=== PATIENT | female | born 1960 | race Caucasian/White ===

== ENCOUNTER 2021-03-19 14:14 | Inpatient (IN) | payer BC, MEDICARE ==
[2021-03-19] MEDS ORDERED: metroNIDAZOLE-NS PMX 500 MG in SALINE 1 100ML.BAG IVPB STA (14:36)
[2021-03-19] MEDS ORDERED: MORPHINE SULFATE 4 MG/ML SYRINGE IV STA (14:36)
[2021-03-19 15:32] LABS: Basophils % (A) 0 %; Eosinophils % (A) 0 %; HGB 11.4 gm/dL (11.4-16.0); Lymphocytes # (A) 0.5 k/uL (1.0-4.8); Lymphocytes % (A) 12 %; MCH 32.1 pg (25.0-35.0); MCHC 33.4 g/dL (31.0-37.0); Mean Platelet Volume 9.6; Monocytes # (A) 0.2 k/uL (0-1.0); Monocytes % (A) 5 %; Neutrophils # (A) 3.5 k/uL (1.3-7.7); Neutrophils % (A) 82 %; Platelet Count 144 k/uL (150-450); RBC 3.54 m/uL (3.80-5.40); RDW 13.1 % (11.5-15.5); WBC 4.3 k/uL (3.8-10.6)
[2021-03-19 16:05] LABS: INR 1.1 (<1.2); Partial Thromboplastin Time 23.8 sec (22.0-30.0); Prothrombin Time 11.7 sec (9.0-12.0)
[2021-03-19] MEDS ORDERED: ONDANSETRON 4 MG/2 ML VIAL IVP PRN (16:16)
[2021-03-19] MEDS ORDERED: TEMAZEPAM 15 MG CAP PO PRN (16:16)
[2021-03-19] MEDS ORDERED: NALOXONE 0.4 MG/ML 1 ML VIAL IV PRN (16:16)
--- NOTE | 2021-03-19 16:16 | ED ---
Abdominal Pain HPI - General Chief Complaint: Abdominal Pain Stated Complaint: Diverticulitis Time Seen by Provider: 03/19/21 14:24 Source: patient, EMS Mode of arrival: EMS Limitations: no limitations - History of Present Illness Initial Comments: Patient presents with abdominal pain. She has pain all over the belly but mostly in the left lower quadrant. It doesn't radiate anywhere. Nothing makes it better or worse. She was seen at another hospital and was given pain medicine. She has no nausea or vomiting. She has no black or tarry stool or blood in the stool. Review of Systems ROS Statement: Those systems with pertinent positive or pertinent negative responses have been documented in the HPI. ROS Other: All systems not noted in ROS Statement are negative. 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 History of Any Multi-Drug Resistant Organisms: MRSA Date of last positivie culture/infection: 2010 Past Surgical History: Appendectomy Additional Past Surgical History / Comment(s): RIght knee surgery (acl repair) Past Psychological History: No Psychological Hx Reported Smoking Status: Current some day smoker Past Alcohol Use History: None Reported, Occasional Past Drug Use History: None Reported General Exam Limitations: no limitations General appearance: alert, in no apparent distress Head exam: Present: atraumatic, normocephalic, normal inspection Eye exam: Present: normal appearance, PERRL, EOMI. Absent: scleral icterus, conjunctival injection, periorbital swelling ENT exam: Present: normal exam, mucous membranes moist Neck exam: Present: normal inspection. Absent: tenderness, meningismus, lymphadenopathy Respiratory exam: Present: normal lung sounds bilaterally. Absent: respiratory distress, wheezes, rales, rhonchi, stridor Cardiovascular Exam: Present: regular rate, normal rhythm, normal heart sounds. Absent: systolic murmur, diastolic murmur, rubs, gallop, clicks GI/Abdominal exam: Present: soft, tenderness, normal bowel sounds. Absent: distended, guarding, rebound, rigid Extremities exam: Present: normal inspection, full ROM, normal capillary refill. Absent: tenderness, pedal edema, joint swelling, calf tenderness Back exam: Present: normal inspection Neurological exam: Present: alert, oriented X3, CN II-XII intact Psychiatric exam: Present: normal affect, normal mood Skin exam: Present: warm, dry, intact, normal color. Absent: rash Course Vital Signs 03/19/21 14:17 Temperature 99 F Pulse Rate 70 Respiratory 20 Rate Blood Pressure 141/81 O2 Sat by Pulse 97 Oximetry Medical Decision Making - Medical Decision Making Patient presents with abdominal pain. CT shows diverticulitis with abscess formation. I placed a consult to IR. Patient will be admitted to the hospital. - Lab Data Result diagrams: 03/19/21 15:22 Lab Results 03/19/21 03/19/21 Range/Units 15:22 15:22 WBC 4.3 (3.8-10.6) k/uL RBC 3.54 L (3.80-5.40) m/uL Hgb 11.4 (11.4-16.0) gm/dL Hct 34.0 (34.0-46.0) % MCV 96.0 (80.0-100.0) fL MCH 32.1 (25.0-35.0) pg MCHC 33.4 (31.0-37.0) g/dL RDW 13.1 (11.5-15.5) % Plt Count 144 L (150-450) k/uL MPV 9.6 Neutrophils % 82 % Lymphocytes % 12 % Monocytes % 5 % Eosinophils % 0 % Basophils % 0 % Neutrophils # 3.5 (1.3-7.7) k/uL Lymphocytes # 0.5 L (1.0-4.8) k/uL Monocytes # 0.2 (0-1.0) k/uL Eosinophils # 0.0 (0-0.7) k/uL Basophils # 0.0 (0-0.2) k/uL PT 11.7 (9.0-12.0) sec INR 1.1 (<1.2) APTT 23.8 (22.0-30.0) sec Disposition Clinical Impression: Diverticulitis Disposition: ADMITTED IP TO THIS HOSP Condition: Fair Is patient prescribed a controlled substance at d/c from ED?: No Referrals: Bipin Bernal MD [Primary Care Provider] - 1-2 days
[2021-03-19 17:02] LABS: Appearance,Urine Clear (Clear); Bacteria,Urine Rare /hpf; Bilirubin,Urine Negative (Negative); Blood,Urine Trace (Negative); Color,Urine Yellow; Glucose,Urine (UA) Negative (Negative); Ketones,Urine 4+ (Negative); Leukocyte Esterase,Urine Large (Negative); Mucus,Urine Rare /hpf; Nitrite,Urine Negative (Negative); Protein,Urine 1+ (Negative); RBC,Urine 27 /hpf (0-5); Squamous Epithelial Cell,Urine 4 /hpf (0-4); Urobilinogen,Urine <2.0 mg/dL (<2.0); WBC,Urine 17 /hpf (0-5)
[2021-03-19 17:04] LABS: Specific Gravity,Urine >1.050 (1.001-1.035)
[2021-03-19 17:21] LABS: ALT 10 U/L (4-34); AST 15 U/L (14-36); African American GFR (CKD) >90 (>60 ml/min/1.73 sqM); Albumin 3.7 g/dL (3.5-5.0); Alkaline Phosphatase 105 U/L (38-126); Amylase 44 U/L (30-110); Anion Gap 11 mmol/L; Blood Urea Nitrogen 11 mg/dL (7-17); Calcium 8.8 mg/dL (8.4-10.2); Carbon Dioxide 20 mmol/L (22-30); Chloride 106 mmol/L (98-107); Glucose 91 mg/dL (74-99); Non-African American GFR(CKD) >90 (>60 ml/min/1.73 sqM); Potassium 4.3 mmol/L (3.5-5.1); Sodium 137 mmol/L (137-145); Total Bilirubin 0.5 mg/dL (0.2-1.3); Total Protein 5.8 g/dL (6.3-8.2)
[2021-03-19 17:30] LABS: Lipase 102 U/L (23-300)
[2021-03-19] MEDS: MORPHINE SULFATE 4 MG/ML SYRINGE IV PRN (21:10)
[2021-03-19] MEDS: SODIUM CHLORIDE 0.9% 1,000 ML IV SCH (21:10)
[2021-03-19] MEDS ORDERED: LORazepam 0.5 MG TAB PO PRN (21:17)
[2021-03-19] MEDS ORDERED: ACYCLOVIR 800 MG TAB PO SCH (21:30)
[2021-03-19] MEDS ORDERED: PIPERACILLIN-TAZOBACTAM 3.375 GM in SODIUM CHLORIDE 0.9% 100 ML IVPB ONE (21:45)
[2021-03-19] MEDS: ACYCLOVIR 200 MG CAP PO SCH (22:05)
[2021-03-19] MEDS: NON FORMULARY DRUG (Venetoclax [Venclexta] 100 MG Tablet) PO SCH (22:07)
--- NOTE | 2021-03-19 22:29 | P.HPIM ---
History of Present Illness H&P Date: 03/19/21 Chief Complaint: Acute Diverticulitis transferred from [facility] Ms. Matson is a 60-year-old female with a past medical history of CLL in remission on Venclexta transferred from [facility] for concerns of intra- abdominal abscess. Patient states for the past 1 week she has been having abdominal discomfort and for the past 3 to 4 days have been having fevers. She states that she has been taking Tylenol and Motrin without much improvement in her symptoms. Patient also states that she had an episode of nausea and vomiting prior to going to the hospital. At another facility patient had a CAT scan of the abdomen and pelvis showing acute diverticulitis with developing abscess,one [id number] mm and second fluid collection within the sigmoid wall-29mm. She was evaluated by the surgeon at the facility and they suggested that she may need IR guided drainage of the abscess, for which she is transferred for to [facility] [place]. Patient received a dose of Zosyn and also be obtained blood cultures. Patient's reports from another facility reviewed. Patient's vitals at the time of admission to the ER temperature 99, heart rate 70, respiratory rate 20, blood pressure 141/81 saturating at 97% on room air. She had labs done showing white count of 4.3, hemoglobin 11.4, platelets 144. Sodium 137, potassium 4.3, chloride 106, bicarb 20, BUN 11, creatinine 0.56. Urine analysis is positive for large leukocyte esterase 27 RBCs 17 WBCs and trace blood with 4+ ketones. Coronavirus PCR negative. Review of Systems REVIEW OF SYSTEMS: CONSTITUTIONAL: As mentioned in HPI HEENT: No recent visual problems or hearing problems. Denied any sore throat. CARDIOVASCULAR: No chest pain, orthopnea, PND, no palpitations, no syncope. PULMONARY: No shortness of breath, no cough, no hemoptysis. GASTROINTESTINAL: As mentioned in HPI NEUROLOGICAL: No headaches, no weakness, no numbness. HEMATOLOGICAL: Denies any bleeding or petechiae. GENITOURINARY: Denies any burning micturition, frequency, or urgency. MUSCULOSKELETAL/RHEUMATOLOGICAL: Denies any joint pain, swelling, or any muscle pain. ENDOCRINE: Denies any polyuria or polydipsia. The rest of the 14-point review of systems is negative. 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 History of Any Multi-Drug Resistant Organisms: MRSA Date of last positivie culture/infection: 2010 Past Surgical History: Appendectomy Additional Past Surgical History / Comment(s): RIght knee surgery (acl repair) Past Psychological History: No Psychological Hx Reported Smoking Status: Current some day smoker Past Alcohol Use History: None Reported, Occasional Past Drug Use History: None Reported Medications and Allergies Home Medications Medication Instructions Recorded Confirmed Type Acyclovir 800 mg PO HS 03/19/21 03/19/21 History Albuterol Inhaler [Ventolin Hfa 2 puff INHALATION RT-Q6H PRN 03/19/21 03/19/21 History Inhaler] Cholecalciferol (Vitamin D3) 125 mcg PO HS 03/19/21 03/19/21 History [Vitamin D3 (125 MCG = 5,000 IU)] LORazepam [Ativan] 0.5 mg PO HS PRN 03/19/21 03/19/21 History Venetoclax [Venclexta] 400 mg PO HS 03/19/21 03/19/21 History Zinc Gluconate [Zinc] 50 mg PO HS 03/19/21 03/19/21 History Allergies Allergy/AdvReac Type Severity Reaction Status Date / Time oseltamivir [From Tamiflu] Allergy Rash/Hives Verified 03/19/21 16:23 amoxicillin [From Augmentin] AdvReac Unknown Vomiting Verified 03/19/21 16:23 clavulanic acid AdvReac Unknown Vomiting Verified 03/19/21 16:23 [From Augmentin] vancomycin AdvReac "Flushing/Red Verified 03/19/21 16:24 Man Syndrome" Physical Exam Vitals: Vital Signs Temp Pulse Resp BP Pulse Ox 03/19/21 14:17 99 F 70 20 141/81 97 Intake and Output 03/19/21 03/19/21 03/19/21 06:59 14:59 22:59 Other: Weight 101.605 kg PHYSICAL EXAMINATION: GENERAL: The patient is alert and oriented x3, not in any acute distress. Well developed, well nourished. HEENT: Pupils are round and equally reacting to light. EOMI. No scleral icterus. No conjunctival pallor. Normocephalic, atraumatic. No pharyngeal erythema. No thyromegaly. CARDIOVASCULAR: S1 and S2 present. No murmurs, rubs, or gallops. PULMONARY: Chest is clear to auscultation, no wheezing or crackles. ABDOMEN: Soft, mild tenderness in all quadrants , nondistended, normoactive bowel sounds. No palpable organomegaly. MUSCULOSKELETAL: No joint swelling or deformity. EXTREMITIES: No cyanosis, clubbing, or pedal edema. Hyperpigmented lesion on both LEs. NEUROLOGICAL: Gross neurological examination did not reveal any focal deficits. SKIN: No rashes. Results CBC & Chem 7: 03/19/21 15:22 03/19/21 17:05 Labs: Abnormal Lab Results - Last 24 Hours (Table) 03/19/21 Range/Units 15:22 RBC 3.54 L (3.80-5.40) m/uL Plt Count 144 L (150-450) k/uL Lymphocytes # 0.5 L (1.0-4.8) k/uL Assessment and Plan Assessment: ASSESSMENT Sepsis secondary to acute diverticulitis Acute diverticulitis with abscess Thrombocytopenia History of CLL on Venetoclax History of anxiety History of MRSA Plan: Patient to be continued on Zosyn. Surgery/ IR consulted for possible drainage of the abscess. Patient is kept n.p.o. except for her medications. Continue with IV fluids at 100 cc/h. Continue with the rest of her current medication regimen. Further recommendations to follow depending on the progress of the patient. The treatment plan was discussed in detail with the patient and her at bedside.
[2021-03-19] MEDS ORDERED: HYDROmorphone 0.5 MG/0.5 ML SYRINGE IVP PRN (23:46)
[2021-03-20] MEDS ORDERED: PIPERACILLIN-TAZOBACTAM 3.375 GM in SODIUM CHLORIDE 0.9% 100 ML IVPB SCH ×2
[2021-03-20] MEDS: PIPERACILLIN-TAZOBACTAM 3.375 GM in SODIUM CHLORIDE 0.9% 100 ML IVPB SCH ×3 (05:47→22:25)
[2021-03-20] MEDS: HYDROcodone/APAP 5-325MG 1 EACH TAB PO PRN (05:47)
[2021-03-20 05:49] LABS: Basophils % (A) 0 %; Eosinophils % (A) 0 %; HGB 10.7 gm/dL (11.4-16.0); Lymphocytes # (A) 0.6 k/uL (1.0-4.8); Lymphocytes % (A) 15 %; MCH 32.4 pg (25.0-35.0); MCHC 33.5 g/dL (31.0-37.0); MCV 96.8 fL (80.0-100.0); Mean Platelet Volume 7.5; Monocytes # (A) 0.3 k/uL (0-1.0); Monocytes % (A) 6 %; Neutrophils # (A) 3.3 k/uL (1.3-7.7); Neutrophils % (A) 77 %; Platelet Count 133 k/uL (150-450); RBC 3.31 m/uL (3.80-5.40); RDW 12.9 % (11.5-15.5); WBC 4.3 k/uL (3.8-10.6)
[2021-03-20 06:00] LABS: African American GFR (CKD) >90 (>60 ml/min/1.73 sqM); Anion Gap 10 mmol/L; Blood Urea Nitrogen 9 mg/dL (7-17); Calcium 8.3 mg/dL (8.4-10.2); Carbon Dioxide 18 mmol/L (22-30); Chloride 106 mmol/L (98-107); Glucose 84 mg/dL (74-99); Non-African American GFR(CKD) >90 (>60 ml/min/1.73 sqM); Potassium 4.1 mmol/L (3.5-5.1); Sodium 134 mmol/L (137-145)
[2021-03-20] MEDS: HEPARIN SODIUM,PORCINE/PF 5,000 UNIT/0.5 ML SYRINGE SQ SCH ×2 (08:13→22:02)
[2021-03-20 13:42] VITALS: BMI 31.4
[2021-03-20] MEDS ORDERED: LORazepam 2 MG/ML INJ IV PRN (14:19)
--- NOTE | 2021-03-20 14:19 | P.GSCN ---
History of Present Illness Consult date: 03/20/21 Reason for Consult: Diverticulitis with abscess History of present illness: The patient is a 60-year-old female who developed abdominal pain starting about a week ago. She never had any episodes like this in the past. She began having some fevers and took Tylenol or Motrin without improvement. The pain got worse and she developed nausea and vomiting so she went to the ER. A computed tomography scan showed acute diverticulitis with an abscess. It was recommended she be transferred here for percutaneous drainage by the interventional radiologist. Patient has never had diverticulitis in the past. Denies any prior issues with blood in the stool or dark tarry stool. No family history of GI malignancy or inflammatory bowel disease. The patient has never had a colonoscopy before. 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 History of Any Multi-Drug Resistant Organisms: MRSA Year Discovered:: 2010 MDRO Source:: Blood Past Surgical History: Appendectomy Additional Past Surgical History / Comment(s): RIght knee surgery (acl repair) Past Psychological History: No Psychological Hx Reported Smoking Status: Current some day smoker Past Alcohol Use History: None Reported, Occasional Past Drug Use History: None Reported Medications and Allergies Home Medications Medication Instructions Recorded Confirmed Type Acyclovir 800 mg PO HS 03/19/21 03/19/21 History Albuterol Inhaler [Ventolin Hfa 2 puff INHALATION RT-Q6H PRN 03/19/21 03/19/21 History Inhaler] Cholecalciferol (Vitamin D3) 125 mcg PO HS 03/19/21 03/19/21 History [Vitamin D3 (125 MCG = 5,000 IU)] LORazepam [Ativan] 0.5 mg PO HS PRN 03/19/21 03/19/21 History Venetoclax [Venclexta] 400 mg PO HS 03/19/21 03/19/21 History Zinc Gluconate [Zinc] 50 mg PO HS 03/19/21 03/19/21 History Allergies Allergy/AdvReac Type Severity Reaction Status Date / Time oseltamivir [From Tamiflu] Allergy Rash/Hives Verified 03/19/21 23:31 amoxicillin [From Augmentin] AdvReac Unknown Vomiting Verified 03/19/21 23:31 clavulanic acid AdvReac Unknown Vomiting Verified 03/19/21 23:31 [From Augmentin] vancomycin AdvReac "Flushing/Red Verified 03/19/21 23:31 Man Syndrome" Surgical - Exam Osteopathic Statement: *. No significant issues noted on an osteopathic structural exam other than those noted in the History and Physical/Consult. Vital Signs Temp Pulse Resp BP Pulse Ox 99 F 70 20 141/81 97 03/19/21 14:17 03/19/21 14:17 03/19/21 14:17 03/19/21 14:17 03/19/21 14:17 - General The patient is anxious well developed, well nourished - Eyes normal ocular movement - Neck trachea midline - Respiratory normal respiratory effort, clear to auscultation (But diminished bilaterally) - Abdomen Abdomen: soft, tender (Nonspecific tenderness in the lower abdomen), bowel sounds, no guarding, no rigid, no rebound Results - Labs 03/20/21 05:37 03/20/21 05:37 Abnormal Lab Results - Last 24 Hours (Table) 03/19/21 03/19/21 03/19/21 Range/Units 15:22 15:22 17:05 RBC 3.54 L (3.80-5.40) m/uL Hgb (11.4-16.0) gm/dL Hct (34.0-46.0) % Plt Count 144 L (150-450) k/uL Lymphocytes # 0.5 L (1.0-4.8) k/uL Sodium (137-145) mmol/L Carbon Dioxide 20 L (22-30) mmol/L Calcium (8.4-10.2) mg/dL Total Protein 5.8 L (6.3-8.2) g/dL Ur Specific [place] >1.050 H (1.001-1.035) Urine Protein 1+ H (Negative) Urine Ketones 4+ H (Negative) Urine Blood Trace H (Negative) Ur Leukocyte Esterase Large H (Negative) Urine RBC 27 H (0-5) /hpf Urine WBC 17 H (0-5) /hpf Urine Bacteria Rare H (None) /hpf Urine Mucus Rare H (None) /hpf 03/20/21 03/20/21 Range/Units 05:37 05:37 RBC 3.31 L (3.80-5.40) m/uL Hgb 10.7 L (11.4-16.0) gm/dL Hct 32.0 L (34.0-46.0) % Plt Count 133 L (150-450) k/uL Lymphocytes # 0.6 L (1.0-4.8) k/uL Sodium 134 L (137-145) mmol/L Carbon Dioxide 18 L (22-30) mmol/L Calcium 8.3 L (8.4-10.2) mg/dL Total Protein (6.3-8.2) g/dL Ur Specific [place] (1.001-1.035) Urine Protein (Negative) Urine Ketones (Negative) Urine Blood (Negative) Ur Leukocyte Esterase (Negative) Urine RBC (0-5) /hpf Urine WBC (0-5) /hpf Urine Bacteria (None) /hpf Urine Mucus (None) /hpf Microbiology - Last 24 Hours (Table) 03/19/21 15:22 Urine Culture - Preliminary Urine,Clean Catch Diabetes panel 03/19/21 03/20/21 Range/Units 17:05 05:37 Sodium 137 134 L (137-145) mmol/L Potassium 4.3 4.1 (3.5-5.1) mmol/L Chloride 106 106 (98-107) mmol/L Carbon Dioxide 20 L 18 L (22-30) mmol/L BUN 11 9 (7-17) mg/dL Creatinine 0.56 0.54 (0.52-1.04) mg/dL Glucose 91 84 (74-99) mg/dL Calcium 8.8 8.3 L (8.4-10.2) mg/dL AST 15 (14-36) U/L ALT 10 (4-34) U/L Alkaline Phosphatase 105 (38-126) U/L Total Protein 5.8 L (6.3-8.2) g/dL Albumin 3.7 (3.5-5.0) g/dL Calcium panel 03/19/21 03/20/21 Range/Units 17:05 05:37 Calcium 8.8 8.3 L (8.4-10.2) mg/dL Albumin 3.7 (3.5-5.0) g/dL Pituitary panel 03/19/21 03/20/21 Range/Units 17:05 05:37 Sodium 137 134 L (137-145) mmol/L Potassium 4.3 4.1 (3.5-5.1) mmol/L Chloride 106 106 (98-107) mmol/L Carbon Dioxide 20 L 18 L (22-30) mmol/L BUN 11 9 (7-17) mg/dL Creatinine 0.56 0.54 (0.52-1.04) mg/dL Glucose 91 84 (74-99) mg/dL Calcium 8.8 8.3 L (8.4-10.2) mg/dL Adrenal panel 03/19/21 03/20/21 Range/Units 17:05 05:37 Sodium 137 134 L (137-145) mmol/L Potassium 4.3 4.1 (3.5-5.1) mmol/L Chloride 106 106 (98-107) mmol/L Carbon Dioxide 20 L 18 L (22-30) mmol/L BUN 11 9 (7-17) mg/dL Creatinine 0.56 0.54 (0.52-1.04) mg/dL Glucose 91 84 (74-99) mg/dL Calcium 8.8 8.3 L (8.4-10.2) mg/dL Total Bilirubin 0.5 (0.2-1.3) mg/dL AST 15 (14-36) U/L ALT 10 (4-34) U/L Alkaline Phosphatase 105 (38-126) U/L Total Protein 5.8 L (6.3-8.2) g/dL Albumin 3.7 (3.5-5.0) g/dL - Imaging CT scan - abdomen: report reviewed Assessment and Plan (1) CLL (chronic lymphocytic leukemia) Current Visit: Yes Status: Acute Code(s): C91.10 - CHRONIC LYMPHOCYTIC LEUK OF B-CELL TYPE NOT ACHIEVE REMIS SNOMED Code(s): 27720664 (2) Anxiety Current Visit: Yes Status: Acute Code(s): F41.9 - ANXIETY DISORDER, UN SPECIFIED SNOMED Code(s): 74388726 (3) Tobacco dependence Current Visit: Yes Status: Acute Code(s): F17.200 - NICOTINE DEPENDENCE, UNSPECIFIED, UNCOMPLICATED SNOMED Code(s): 29287363 (4) Diverticulitis of intestine with abscess Current Visit: Yes Status: Acute Code(s): K57.80 - DVTRCLI OF INTEST, PART UNSP, W PERF AND ABSCESS W/O BLEED SNOMED Code(s): 403466152 Plan: Patient is on appropriate antibiotic therapy. DVT and ulcer prophylaxis. Await evaluation and treatment by interventional radiology. Currently nonsurgical unless abscess is not amenable to IR drainage or she doesn't respond to medical therapy. Questions were encouraged and answered.
[2021-03-20] MEDS ORDERED: PANTOPRAZOLE 40 MG TABLET PO STA (14:20)
--- NOTE | 2021-03-20 14:50 | P.GSCN ---
History of Present Illness Consult date: 03/20/21 Reason for Consult: pelvic abscess History of present illness: I was asked to review patient's ct from outside institution dated 03/19/21. The multilocular probable diverticular abscess has intramural component, a portion within the pelvis that does not show percutaneous accessibility, measuring 4.5x 3x 2 cm. IR defers percutaneous biopsy for these reasons. 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 History of Any Multi-Drug Resistant Organisms: MRSA Year Discovered:: 2010 MDRO Source:: Blood Past Surgical History: Appendectomy Additional Past Surgical History / Comment(s): RIght knee surgery (acl repair) Past Psychological History: No Psychological Hx Reported Smoking Status: Current some day smoker Past Alcohol Use History: None Reported, Occasional Past Drug Use History: None Reported Medications and Allergies Home Medications Medication Instructions Recorded Confirmed Type Acyclovir 800 mg PO HS 03/19/21 03/19/21 History Albuterol Inhaler [Ventolin Hfa 2 puff INHALATION RT-Q6H PRN 03/19/21 03/19/21 History Inhaler] Cholecalciferol (Vitamin D3) 125 mcg PO HS 03/19/21 03/19/21 History [Vitamin D3 (125 MCG = 5,000 IU)] LORazepam [Ativan] 0.5 mg PO HS PRN 03/19/21 03/19/21 History Venetoclax [Venclexta] 400 mg PO HS 03/19/21 03/19/21 History Zinc Gluconate [Zinc] 50 mg PO HS 03/19/21 03/19/21 History Allergies Allergy/AdvReac Type Severity Reaction Status Date / Time oseltamivir [From Tamiflu] Allergy Rash/Hives Verified 03/19/21 23:31 amoxicillin [From Augmentin] AdvReac Unknown Vomiting Verified 03/19/21 23:31 clavulanic acid AdvReac Unknown Vomiting Verified 03/19/21 23:31 [From Augmentin] vancomycin AdvReac "Flushing/Red Verified 03/19/21 23:31 Man Syndrome" Surgical - Exam Vital Signs Temp Pulse Resp BP Pulse Ox 99 F 70 20 141/81 97 03/19/21 14:17 03/19/21 14:17 03/19/21 14:17 03/19/21 14:17 03/19/21 14:17 Results - Labs 03/20/21 05:37 03/20/21 05:37 Abnormal Lab Results - Last 24 Hours (Table) 03/19/21 03/19/21 03/19/21 Range/Units 15:22 15:22 17:05 RBC 3.54 L (3.80-5.40) m/uL Hgb (11.4-16.0) gm/dL Hct (34.0-46.0) % Plt Count 144 L (150-450) k/uL Lymphocytes # 0.5 L (1.0-4.8) k/uL Sodium (137-145) mmol/L Carbon Dioxide 20 L (22-30) mmol/L Calcium (8.4-10.2) mg/dL Total Protein 5.8 L (6.3-8.2) g/dL Ur Specific [place] >1.050 H (1.001-1.035) Urine Protein 1+ H (Negative) Urine Ketones 4+ H (Negative) Urine Blood Trace H (Negative) Ur Leukocyte Esterase Large H (Negative) Urine RBC 27 H (0-5) /hpf Urine WBC 17 H (0-5) /hpf Urine Bacteria Rare H (None) /hpf Urine Mucus Rare H (None) /hpf 03/20/21 03/20/21 Range/Units 05:37 05:37 RBC 3.31 L (3.80-5.40) m/uL Hgb 10.7 L (11.4-16.0) gm/dL Hct 32.0 L (34.0-46.0) % Plt Count 133 L (150-450) k/uL Lymphocytes # 0.6 L (1.0-4.8) k/uL Sodium 134 L (137-145) mmol/L Carbon Dioxide 18 L (22-30) mmol/L Calcium 8.3 L (8.4-10.2) mg/dL Total Protein (6.3-8.2) g/dL Ur Specific [place] (1.001-1.035) Urine Protein (Negative) Urine Ketones (Negative) Urine Blood (Negative) Ur Leukocyte Esterase (Negative) Urine RBC (0-5) /hpf Urine WBC (0-5) /hpf Urine Bacteria (None) /hpf Urine Mucus (None) /hpf Microbiology - Last 24 Hours (Table) 03/19/21 15:22 Urine Culture - Preliminary Urine,Clean Catch Diabetes panel 03/19/21 03/20/21 Range/Units 17:05 05:37 Sodium 137 134 L (137-145) mmol/L Potassium 4.3 4.1 (3.5-5.1) mmol/L Chloride 106 106 (98-107) mmol/L Carbon Dioxide 20 L 18 L (22-30) mmol/L BUN 11 9 (7-17) mg/dL Creatinine 0.56 0.54 (0.52-1.04) mg/dL Glucose 91 84 (74-99) mg/dL Calcium 8.8 8.3 L (8.4-10.2) mg/dL AST 15 (14-36) U/L ALT 10 (4-34) U/L Alkaline Phosphatase 105 (38-126) U/L Total Protein 5.8 L (6.3-8.2) g/dL Albumin 3.7 (3.5-5.0) g/dL Calcium panel 03/19/21 03/20/21 Range/Units 17:05 05:37 Calcium 8.8 8.3 L (8.4-10.2) mg/dL Albumin 3.7 (3.5-5.0) g/dL Pituitary panel 03/19/21 03/20/21 Range/Units 17:05 05:37 Sodium 137 134 L (137-145) mmol/L Potassium 4.3 4.1 (3.5-5.1) mmol/L Chloride 106 106 (98-107) mmol/L Carbon Dioxide 20 L 18 L (22-30) mmol/L BUN 11 9 (7-17) mg/dL Creatinine 0.56 0.54 (0.52-1.04) mg/dL Glucose 91 84 (74-99) mg/dL Calcium 8.8 8.3 L (8.4-10.2) mg/dL Adrenal panel 03/19/21 03/20/21 Range/Units 17:05 05:37 Sodium 137 134 L (137-145) mmol/L Potassium 4.3 4.1 (3.5-5.1) mmol/L Chloride 106 106 (98-107) mmol/L Carbon Dioxide 20 L 18 L (22-30) mmol/L BUN 11 9 (7-17) mg/dL Creatinine 0.56 0.54 (0.52-1.04) mg/dL Glucose 91 84 (74-99) mg/dL Calcium 8.8 8.3 L (8.4-10.2) mg/dL Total Bilirubin 0.5 (0.2-1.3) mg/dL AST 15 (14-36) U/L ALT 10 (4-34) U/L Alkaline Phosphatase 105 (38-126) U/L Total Protein 5.8 L (6.3-8.2) g/dL Albumin 3.7 (3.5-5.0) g/dL
--- NOTE | 2021-03-20 15:06 | P.PN ---
Progress Note - Text Progress Note Date: 03/20/21 The interventional radiologist reviewed the patient's CT scan and found the abscess not to be amenable to percutaneous drainage. THerefore I recommended exploratory laparotomy with hartmans procedure. THe procedure, risks, complications and usual postoperative course was discussed with the patient. Questions were encouraged and answered. I will take her to the OR this afternoon
[2021-03-20] MEDS ORDERED: ACETAMINOPHEN IV (For NPO) 1,000 MG in EMPTY BAG 1 BAG IVPB ONE (15:34)
[2021-03-20] MEDS ORDERED: IV FLUID CONTINUATION 1,000 ML IV ONE ×2 (16:03)
[2021-03-20] MEDS ORDERED: ONDANSETRON 4 MG/2 ML VIAL IVP ONE (16:06)
[2021-03-20] MEDS ORDERED: DEXAMETHASONE SOD PHOSPHATE 4 MG/ML 1 ML VIAL IVP ONE (16:07)
[2021-03-20] MEDS ORDERED: SUCCINYLCHOLINE CHLORIDE 100 MG/5 ML SYR IV ONE (16:14)
[2021-03-20] MEDS ORDERED: fentaNYL (PF) 50 MCG/ML 2 ML AMP ONE (16:14)
[2021-03-20] MEDS ORDERED: ROCURONIUM 10 MG/ML (5 ML VIAL) IV ONE (16:14)
[2021-03-20] MEDS ORDERED: PROPOFOL 10 MG/ML 20 ML VIAL IV ONE (16:14)
[2021-03-20] MEDS ORDERED: ACETAMINOPHEN IV (For NPO) 1,000 MG/100 ML VIAL ONE (16:14)
[2021-03-20] MEDS ORDERED: LIDOCAINE 1% INJ 10MG/ML (20 ML MDV) ONE (16:14)
[2021-03-20] MEDS ORDERED: NEOSTIGMINE 1 MG/ML 10 ML VIAL ONE (16:14)
[2021-03-20] MEDS ORDERED: GLYCOPYRROLATE 0.2 MG/ML 2 ML VIAL ONE (16:14)
[2021-03-20] MEDS ORDERED: MIDAZOLAM 2 MG/2 ML VIAL ONE (16:14)
[2021-03-20] MEDS ORDERED: HYDROmorphone (PF) 1 MG/ML ONE (16:14)
[2021-03-20] MEDS ORDERED: LACTATED RINGERS 1,000 ML IV ONE (16:48)
--- NOTE | 2021-03-20 17:06 | P.PN ---
Subjective Progress Note Date: 03/20/21 Principal diagnosis: Acute Diverticulitis with Abscess Ms. Matson is a 60-year-old female with a past medical history of CLL in remission on Venclexta transferred from [facility] for concerns of intra- abdominal abscess. Patient states for the past 1 week she has been having abdominal discomfort and for the past 3 to 4 days have been having fevers. She states that she has been taking Tylenol and Motrin without much improvement in her symptoms. Patient also states that she had an episode of nausea and vomiting prior to going to the hospital. At another facility patient had a CAT scan of the abdomen and pelvis showing acute diverticulitis with developing abscess,one [id number] mm and second fluid collection within the sigmoid wall-29mm. She was evaluated by the surgeon at the facility and they suggested that she may need IR guided drainage of the abscess, for which she is transferred for to [facility] [place]. Patient received a dose of Zosyn and also be obtained blood cultures. Patient's reports from another facility reviewed. Patient's vitals at the time of admission to the ER temperature 99, heart rate 70, respiratory rate 20, blood pressure 141/81 saturating at 97% on room air. She had labs done showing white count of 4.3, hemoglobin 11.4, platelets 144. Sodium 137, potassium 4.3, chloride 106, bicarb 20, BUN 11, creatinine 0.56. Urine analysis is positive for large leukocyte esterase 27 RBCs 17 WBCs and trace blood with 4+ ketones. Coronavirus PCR negative. On 03/20/2021- patient is seen and examined at the bedside. Patient states her abdominal pain has improved. She denies having any nausea or vomiting currently . Patient denies having any fevers chills or rigors. Patient is tearful that she might have to undergo surgical exploration for drainage of the abscess as told by Dr. German earlier this afternoon. On reviewing the vitals patient spiked a fever of 100, tachycardic at 112, blood pressure 155/80, respiratory rate 18, saturating at 95% on room air. Her last from this morning showing white count of 4.3, hemoglobin 10.7, platelets 133. Sodium 134, potassium 4.1, chloride 106, bicarb 18, BUN 9, creatinine 0.54. Active Medications Hydrocodone Bitart/Acetaminophen (Hydrocodone/Apap 5-325mg 1 Each Tab) 1 each PO Q6HR PRN PRN Reason: Pain Last Admin: 03/20/21 05:47 Dose: 1 each Documented by: Acyclovir (Acyclovir 200 Mg Cap) 800 mg PO HS [facility] Last Admin: 03/19/21 22:05 Dose: 800 mg Documented by: Heparin Sodium (Porcine) (Heparin Sodium,Porcine/Pf 5,000 Unit/0.5 Ml Syringe) 5,000 unit SQ BID [facility] Last Admin: 03/20/21 08:13 Dose: 5,000 unit Documented by: Hydromorphone HCl (Hydromorphone 0.5 Mg/0.5 Ml Syringe) 0.5 mg IVP Q6HR PRN PRN Reason: Pain Piperacillin Sod/Tazobactam (Sod 3.375 gm/ Sodium Chloride) 100 mls @ 25 mls/hr IVPB Q8H [facility] Last Admin: 03/20/21 14:11 Dose: 25 mls/hr Documented by: Sodium Chloride (Saline 0.9%) 1,000 mls @ 75 mls/hr IV .[id number] [facility] Last Admin: 03/19/21 21:10 Dose: 75 mls/hr Documented by: Lorazepam (Lorazepam 0.5 Mg Tab) 0.5 mg PO HS PRN PRN Reason: INSOMNIA/ANXIETY Lorazepam (Lorazepam 2 Mg/Ml Inj) 1 mg IV Q6HR PRN PRN Reason: Anxiety Last Admin: 03/20/21 15:10 Dose: 1 mg Documented by: Morphine Sulfate (Morphine Sulfate 4 Mg/Ml Syringe) 4 mg IV Q4HR PRN PRN Reason: Severe Pain Last Admin: 03/19/21 21:10 Dose: 4 mg Documented by: Naloxone HCl (Naloxone 0.4 Mg/Ml 1 Ml Vial) 0.2 mg IV Q2M PRN PRN Reason: Opioid Reversal Non-Formulary Medication (Venetoclax [Venclexta]) 400 mg PO [facility] Last Admin: 03/19/21 22:07 Dose: 400 mg Documented by: Ondansetron HCl (Ondansetron 4 Mg/2 Ml Vial) 4 mg IVP Q8HR PRN PRN Reason: Nausea And Vomiting Temazepam (Temazepam 15 Mg Cap) 15 mg PO HS PRN PRN Reason: Insomnia Objective - Vital Signs Vital signs: Vital Signs Temp 98.1 F 03/20/21 08:00 Pulse 86 03/20/21 08:00 Resp 18 03/20/21 08:00 BP 112/71 03/20/21 08:00 Pulse Ox 97 03/20/21 08:00 Intake & Output 03/19/21 03/20/21 03/20/21 18:59 06:59 18:59 Output Total 500 Balance -500 Weight 101.605 kg 102.3 kg 102.3 kg Output: Urine 500 Other: Voiding Method Toilet Toilet - Exam PHYSICAL EXAMINATION: GENERAL: The patient is alert and oriented x3, not in any acute distress. Well developed, well nourished. HEENT: Pupils are round and equally reacting to light CARDIOVASCULAR: S1 and S2 present. No murmurs, rubs, or gallops. PULMONARY: Chest is clear to auscultation, no wheezing or crackles. ABDOMEN: Soft, mild tenderness in bilateral lower quadrants , nondistended, normoactive bowel sounds. No palpable organomegaly. MUSCULOSKELETAL: No joint swelling or deformity. EXTREMITIES: No cyanosis, clubbing, or pedal edema. Hyperpigmented lesion on both LEs. NEUROLOGICAL: Gross neurological examination did not reveal any focal deficits. SKIN: No rashes. - Labs CBC & Chem 7: 03/20/21 05:37 03/20/21 05:37 Labs: Abnormal Lab Results - Last 24 Hours (Table) 03/19/21 03/19/21 03/19/21 Range/Units 15:22 15:22 17:05 RBC 3.54 L (3.80-5.40) m/uL Hgb (11.4-16.0) gm/dL Hct (34.0-46.0) % Plt Count 144 L (150-450) k/uL Lymphocytes # 0.5 L (1.0-4.8) k/uL Sodium (137-145) mmol/L Carbon Dioxide 20 L (22-30) mmol/L Calcium (8.4-10.2) mg/dL Total Protein 5.8 L (6.3-8.2) g/dL Ur Specific [place] >1.050 H (1.001-1.035) Urine Protein 1+ H (Negative) Urine Ketones 4+ H (Negative) Urine Blood Trace H (Negative) Ur Leukocyte Esterase Large H (Negative) Urine RBC 27 H (0-5) /hpf Urine WBC 17 H (0-5) /hpf Urine Bacteria Rare H (None) /hpf Urine Mucus Rare H (None) /hpf 03/20/21 03/20/21 Range/Units 05:37 05:37 RBC 3.31 L (3.80-5.40) m/uL Hgb 10.7 L (11.4-16.0) gm/dL Hct 32.0 L (34.0-46.0) % Plt Count 133 L (150-450) k/uL Lymphocytes # 0.6 L (1.0-4.8) k/uL Sodium 134 L (137-145) mmol/L Carbon Dioxide 18 L (22-30) mmol/L Calcium 8.3 L (8.4-10.2) mg/dL Total Protein (6.3-8.2) g/dL Ur Specific [place] (1.001-1.035) Urine Protein (Negative) Urine Ketones (Negative) Urine Blood (Negative) Ur Leukocyte Esterase (Negative) Urine RBC (0-5) /hpf Urine WBC (0-5) /hpf Urine Bacteria (None) /hpf Urine Mucus (None) /hpf Microbiology - Last 24 Hours (Table) 03/19/21 15:22 Urine Culture - Preliminary Urine,Clean Catch Assessment and Plan Assessment: ASSESSMENT Sepsis secondary to acute diverticulitis Acute diverticulitis with abscess in 2 areas Thrombocytopenia History of CLL on Venetoclax History of anxiety History of MRSA Plan: Patient to be continued on Zosyn. Interventional radiology was consulted, on reviewing the CAT scans from another facility, they decided that the abscesses are not accessible by them. So this was conveyed to Dr. German, who recommends that the patient get exploratory laparotomy with Shea's procedure. She might be boarded for the procedure this afternoon. Continue with the rest of her current medication regimen. Further recommendations depending on the progress of the patient.
--- NOTE | 2021-03-20 18:25 | P.OP ---
Date of Procedure: 03/20/21 Preoperative Diagnosis: Diverticulitis with abscess Postoperative Diagnosis: Diverticulitis with abscess Procedure(s) Performed: Exploratory laparotomy with Damon's procedure Anesthesia: AMAN Surgeon: Aysha German Estimated Blood Loss (ml): 150 Pathology: other Condition: stable Disposition: PACU Indications for Procedure: Patient presented from an outside facility with CT findings of diverticulitis with abscess. This was not amenable to percutaneous drainage Description of Procedure: Patient's taken the operative suite where she is prepped and draped in the usual sterile manner under general endotracheal anesthetic. The abdomen is entered through a midline incision. Small bleeding points were controlled with electrocautery. There is some filmy adhesions of the omentum to the lower midline which were taken down with cautery. The small bowel was then packed out of the way into the upper abdomen and a Bookwalter retractor was used. The sigmoid colon was very edematous. There was some serous fluid present in the pelvis but no obvious free abscess. The descending and sigmoid colon was then mobilized along the white line of Toldt. The sigmoid colon was dissected off the left tube and ovary. Dissection was then carried out along the lower sigmoid. A site was chosen for resection proximally and a small opening was made in the mesentery. A CLARA stapler was then placed and fired. The mesentery was then taken down with LigaSure. The sigmoidal vessels were clamped, cut and tied with 0 Vicryl suture. Distally the proximal rectum was transected with a contour stapler. The distal stump was tagged with 2-0 Prolene. The specimen was passed off. Abscesses appeared to be within the mesentery. No free abscess within the peritoneal cavity. The abdomen was then irrigated and aspirated. A site chosen in the left abdomen for colostomy formation. A disc of skin and subcutaneous tissue was then removed. The fascia was incised with cautery. The muscle was bluntly's ligament and the posterior fascia and peritoneum were ope yesenia with cautery. The colon was then brought up through that opening. The small bowel was then allowed to lay in gentle loops and covered with the omentum. The fascia was closed with 1 PDS. Subcutaneous tissue was approximated with some interrupted 3-0 Vicryl. The skin was loosely closed with yovani. Some chris of Telfa were placed to allow for drainage. The incision was then covered with a towel. The ostomy is then matured. The staple line is removed with scissors. The bowel was tacked to the fascia using 3-0 Vicryl. The bowel was everted using 3-0 Vicryl taking full-thickness bite of the cut edge of the bowel, the skin and then the seromuscular tissue. The cut edge was then tacked to the skin using 3-0 chromic. Ostomy appliance was applied. She tolerated the procedure without difficulty and was taken to recovery room in satisfactory condition. According to or personnel, all counts ARE correct.
[2021-03-20] MEDS ORDERED: HYDROmorphone 1 MG/ML 1 ML SYRINGE IVP PRN (18:26)
[2021-03-20] MEDS: ACETAMINOPHEN IV (For NPO) 1,000 MG in EMPTY BAG 1 BAG IVPB PRN ×2 (18:47→19:02)
[2021-03-20] MEDS ORDERED: SODIUM CHLORIDE 0.9% 1,000 ML IV ONE ×2 (18:48)
[2021-03-20] MEDS ORDERED: HYDROmorphone 0.5 MG/0.5 ML SYRINGE IVP ONE (19:00)
[2021-03-20] MEDS: SODIUM CHLORIDE 0.9% 1,000 ML IV SCH (21:31)
[2021-03-20] MEDS: LACTATED RINGERS 1,000 ML IV SCH (21:32)
[2021-03-20] MEDS: METOCLOPRAMIDE 5 MG/ML 2 ML VIAL IVP SCH (21:37)
[2021-03-20] MEDS: MORPHINE SULFATE 4 MG/ML SYRINGE IV PRN (22:02)
[2021-03-20] MEDS: ACYCLOVIR 200 MG CAP PO SCH (22:07)
[2021-03-20] MEDS: NON FORMULARY DRUG (Venetoclax [Venclexta] 100 MG Tablet) PO SCH (22:07)
[2021-03-20] MEDS: D5-0.45% NACL WITH KCL 20MEQ/L 1,000 ML IV SCH (22:20)
[2021-03-21] MEDS: KETOROLAC 15 MG/ML 1 ML VIAL IVP SCH ×4 (00:22→17:40)
[2021-03-21] MEDS: METOCLOPRAMIDE 5 MG/ML 2 ML VIAL IVP SCH ×4 (00:23→17:40)
[2021-03-21] MEDS: SODIUM CHLORIDE 0.9% 1,000 ML IV SCH ×2 (05:08→15:39)
[2021-03-21] MEDS: PIPERACILLIN-TAZOBACTAM 3.375 GM in SODIUM CHLORIDE 0.9% 100 ML IVPB SCH ×3 (05:48→21:31)
[2021-03-21] MEDS: MORPHINE SULFATE 4 MG/ML SYRINGE IV PRN ×4 (05:55→20:28)
[2021-03-21] MEDS: D5-0.45% NACL WITH KCL 20MEQ/L 1,000 ML IV SCH (06:01)
[2021-03-21 06:19] LABS: Basophils % (A) 0 %; Eosinophils % (A) 0 %; HCT 35.9 % (34.0-46.0); HGB 11.2 gm/dL (11.4-16.0); Hypochromasia Slight; Lymphocytes # (A) 0.4 k/uL (1.0-4.8); Lymphocytes % (A) 8 %; MCH 30.9 pg (25.0-35.0); MCHC 31.3 g/dL (31.0-37.0); MCV 98.8 fL (80.0-100.0); Mean Platelet Volume 7.9; Monocytes # (A) 0.2 k/uL (0-1.0); Monocytes % (A) 4 %; Neutrophils # (A) 4.4 k/uL (1.3-7.7); Neutrophils % (A) 86 %; Platelet Count 147 k/uL (150-450); RBC 3.63 m/uL (3.80-5.40); RDW 12.6 % (11.5-15.5); WBC 5.1 k/uL (3.8-10.6)
[2021-03-21 06:35] LABS: ALT 6 U/L (4-34); AST 13 U/L (14-36); African American GFR (CKD) >90 (>60 ml/min/1.73 sqM); Albumin/Globulin Ratio 1.4; Alkaline Phosphatase 79 U/L (38-126); Anion Gap 8 mmol/L; Blood Urea Nitrogen 8 mg/dL (7-17); Calcium 8.7 mg/dL (8.4-10.2); Carbon Dioxide 20 mmol/L (22-30); Chloride 106 mmol/L (98-107); Globulin 2.1 g/dL; Glucose 167 mg/dL (74-99); Non-African American GFR(CKD) >90 (>60 ml/min/1.73 sqM); Potassium 5.2 mmol/L (3.5-5.1); Sodium 134 mmol/L (137-145); Total Bilirubin 0.4 mg/dL (0.2-1.3); Total Protein 5.1 g/dL (6.3-8.2)
[2021-03-21] MEDS ORDERED: HYDROmorphone 0.5 MG/0.5 ML SYRINGE IVP PRN (07:00)
[2021-03-21] MEDS: PANTOPRAZOLE 40 MG/10 ML VIAL IVP SCH (08:26)
[2021-03-21] MEDS: HEPARIN SODIUM,PORCINE/PF 5,000 UNIT/0.5 ML SYRINGE SQ SCH ×2 (08:26→20:28)
--- NOTE | 2021-03-21 09:07 | P.PN ---
Subjective Progress Note Date: 03/21/21 Principal diagnosis: Diverticulitis with abscess The patient is postop day 1 sigmoid resection with diverticulosis with abscess in the mesentery. She feels much better than preop. Mild incisional pain. No nausea or vomiting. Objective - Vital Signs Vital signs: Vital Signs Temp 97.8 F 03/21/21 05:17 Pulse 81 03/21/21 05:17 Resp 16 03/21/21 05:17 BP 131/78 03/21/21 05:17 Pulse Ox 99 03/21/21 05:17 Intake & Output 03/20/21 03/21/21 03/21/21 18:59 06:59 18:59 Intake Total 1200 200 Output Total 250 1100 Balance 950 -900 Weight 102.3 kg Intake: IV 1200 200 Output: Urine 100 1100 Estimated Blood Loss 150 Other: Voiding Method Toilet Indwelling Catheter Indwelling Catheter - Constitutional General appearance: Present: cooperative, no acute distress - Respiratory Respiratory: bilateral: CTA - Gastrointestinal General gastrointestinal: Present: decreased bowel sounds, soft Localized gastrointestinal: surgical scar: diffuse (Ostomy is pink and viable. Some serosanguineous drainage from the incision) - Labs CBC & Chem 7: 03/21/21 05:41 03/21/21 05:41 Labs: Abnormal Lab Results - Last 24 Hours (Table) 03/21/21 03/21/21 Range/Units 05:41 05:41 RBC 3.63 L (3.80-5.40) m/uL Hgb 11.2 L (11.4-16.0) gm/dL Plt Count 147 L (150-450) k/uL Lymphocytes # 0.4 L (1.0-4.8) k/uL Sodium 134 L (137-145) mmol/L Potassium 5.2 H (3.5-5.1) mmol/L Carbon Dioxide 20 L (22-30) mmol/L Creatinine 0.47 L (0.52-1.04) mg/dL Glucose 167 H (74-99) mg/dL AST 13 L (14-36) U/L Total Protein 5.1 L (6.3-8.2) g/dL Albumin 3.0 L (3.5-5.0) g/dL Microbiology - Last 24 Hours (Table) 03/19/21 15:22 Urine Culture - Final Urine,Clean Catch Assessment and Plan (1) Diverticulitis of intestine with abscess Current Visit: Yes Status: Acute Code(s): K57.80 - DVTRCLI OF INTEST, PART UNSP, W PERF AND ABSCESS W/O BLEED SNOMED Code(s): 047417382 (2) CLL (chronic lymphocytic leukemia) Current Visit: Yes Status: Acute Code(s): C91.10 - CHRONIC LYMPHOCYTIC LEUK OF B-CELL TYPE NOT ACHIEVE REMIS SNOMED Code(s): 43382497 (3) Anxiety Current Visit: Yes Status: Acute Code(s): F41.9 - ANXIETY DISORDER, UNSPECIFIED SNOMED Code(s): 69369947 (4) Tobacco dependence Current Visit: Yes Status: Acute Code(s): F17.200 - NICOTINE DEPENDENCE, UNSPECIFIED, UNCOMPLICATED SNOMED Code(s): 86259026 Plan: Encourage activity and incentive spirometry today. She will get ostomy educat ion this admission. Questions were encouraged and answered. She can have small amounts of clear liquids as tolerated.
[2021-03-21] MEDS: DEXTROSE 5%-0.45% NACL 1,000 ML IV SCH ×2 (11:00→21:31)
--- NOTE | 2021-03-21 14:05 | P.PN ---
Subjective Ms. Matson is a 60-year-old female with a past medical history of CLL in remission on Venclexta transferred from [facility] for concerns of intra- abdominal abscess. Patient states for the past 1 week she has been having abdominal discomfort and for the past 3 to 4 days have been having fevers. She states that she has been taking Tylenol and Motrin without much improvement in her symptoms. Patient also states that she had an episode of nausea and vomiting prior to going to the hospital. At another facility patient had a CAT scan of the abdomen and pelvis showing acute diverticulitis with developing abscess,one [id number] mm and second fluid collection within the sigmoid wall-29mm. She was evaluated by the surgeon at the facility and they suggested that she may need IR guided drainage of the abscess, for which she is transferred for to [facility] [place]. Patient received a dose of Zosyn and also be obtained blood cultures. Patient's reports from another facility reviewed. Patient's vitals at the time of admission to the ER temperature 99, heart rate 70, respiratory rate 20, blood pressure 141/81 saturating at 97% on room air. She had labs done showing white count of 4.3, hemoglobin 11.4, platelets 144. Sodium 137, potassium 4.3, chloride 106, bicarb 20, BUN 11, creatinine 0.56. Urine analysis is positive for large leukocyte esterase 27 RBCs 17 WBCs and trace blood with 4+ ketones. Coronavirus PCR negative. On 03/20/2021- patient is seen and examined at the bedside. Patient states her abdominal pain has improved. She denies having any nausea or vomiting currently. Patient denies having any fevers chills or rigors. Patient is tearful that she might have to undergo surgical exploration for drainage of the abscess as told by Dr. German earlier this afternoon. On reviewing the vitals patient spiked a fever of 100, tachycardic at 112, blood pressure 155/80, respiratory rate 18, saturating at 95% on room air. Her last from this morning showing white count of 4.3, hemoglobin 10.7, platelets 133. Sodium 134, potassium 4.1, chloride 106, bicarb 18, BUN 9, creatinine 0.54. Subjective: 03/21/2021 This is a pleasant 60 years old female who presents with signs symptoms of acute diverticulitis with abscess status post exploratory laparotomy with Shea procedure with part of colostomy on the left lower abdomen. 2 days' postop day #1 Patient remains in bed with control of minimal abdominal pain. Still nothing by mouth passing gas but no bowel movement Hemodynamically stable and labs reviewed She is currently on Zosyn She remains on normal saline at 100 mL per hour Objective - Vital Signs Vital signs: Vital Signs Temp 97.9 F 03/21/21 11:33 Pulse 87 03/21/21 11:33 Resp 16 03/21/21 11:33 BP 118/74 03/21/21 11:33 Pulse Ox 94 L 03/21/21 11:33 Intake & Output 03/20/21 03/21/21 03/21/21 18:59 06:59 18:59 Intake Total 1200 200 Output Total 250 1100 250 Balance 950 -900 -250 Weight 102.3 kg Intake: IV 1200 200 Output: Urine 100 1100 250 Estimated Blood Loss 150 Other: Voiding Method Toilet Indwelling Catheter Indwelling Catheter - Exam GENERAL: The patient is alert and oriented x3, not in any acute distress. Well developed, well nourished. HEENT: Pupils are round and equally reacting to light. EOMI. No scleral icterus. No conjunctival pallor. Normocephalic, atraumatic. No pharyngeal erythema. No th yromegaly. CARDIOVASCULAR: S1 and S2 present. No murmurs, rubs, or gallops. PULMONARY: Chest is clear to auscultation, no wheezing or crackles. ABDOMEN: Soft, nontender, nondistended, normoactive bowel sounds. No palpable organomegaly. Left colostomy MUSCULOSKELETAL: No joint swelling or deformity. EXTREMITIES: No cyanosis, clubbing, or pedal edema. NEUROLOGICAL: Gross neurological examination did not reveal any focal deficits. SKIN: No rashes. no petechiae. - Labs CBC & Chem 7: 03/21/21 05:41 03/21/21 05:41 Labs: Abnormal Lab Results - Last 24 Hours (Table) 03/21/21 03/21/21 Range/Units 05:41 05:41 RBC 3.63 L (3.80-5.40) m/uL Hgb 11.2 L (11.4-16.0) gm/dL Plt Count 147 L (150-450) k/uL Lymphocytes # 0.4 L (1.0-4.8) k/uL Sodium 134 L (137-145) mmol/L Potassium 5.2 H (3.5-5.1) mmol/L Carbon Dioxide 20 L (22-30) mmol/L Creatinine 0.47 L (0.52-1.04) mg/dL Glucose 167 H (74-99) mg/dL AST 13 L (14-36) U/L Total Protein 5.1 L (6.3-8.2) g/dL Albumin 3.0 L (3.5-5.0) g/dL Microbiology - Last 24 Hours (Table) 03/19/21 15:22 Urine Culture - Final Urine,Clean Catch Assessment and Plan Assessment: Acute diverticulitis with abscess status post exploratory laparotomy with Shea procedure on 03/20 Sepsis secondary to above Thrombocytopenia History of CLL on Venetoclax History of anxiety History of MRSA Plan: This is a pleasant 60 years old female seen presents with acute diverticulitis and abscess status post exploratory laparotomy and Shea procedure Continue With pain management Continue with Zosyn and IV fluid Surgery team on the case Labs and medication were reviewed.. Continue same treatment. Continue with symptomatic treatment. Resume home medication. Monitor lytes and vitals. DVT and GI prophylaxis. Further recommendationsas per clinical course of the patient DVT prophylaxis: Subcutaneous heparin GI Prophylaxis: Ppi
[2021-03-21] MEDS: LACTATED RINGERS 1,000 ML IV SCH (20:10)
[2021-03-21] MEDS: NON FORMULARY DRUG (Venetoclax [Venclexta] 100 MG Tablet) PO SCH (20:28)
[2021-03-21] MEDS: ACYCLOVIR 200 MG CAP PO SCH (20:28)
[2021-03-22] MEDS: DEXTROSE 5%-0.45% NACL 1,000 ML IV SCH ×2 (00:05→09:41)
[2021-03-22] MEDS: KETOROLAC 15 MG/ML 1 ML VIAL IVP SCH ×4 (00:05→18:06)
[2021-03-22] MEDS: METOCLOPRAMIDE 5 MG/ML 2 ML VIAL IVP SCH ×3 (00:06→13:49)
[2021-03-22] MEDS: SODIUM CHLORIDE 0.9% 1,000 ML IV SCH (03:23)
[2021-03-22] MEDS: MORPHINE SULFATE 4 MG/ML SYRINGE IV PRN ×2 (04:38→08:44)
[2021-03-22] MEDS: PIPERACILLIN-TAZOBACTAM 3.375 GM in SODIUM CHLORIDE 0.9% 100 ML IVPB SCH ×3 (06:23→22:24)
[2021-03-22] MEDS: HEPARIN SODIUM,PORCINE/PF 5,000 UNIT/0.5 ML SYRINGE SQ SCH ×2 (08:12→20:17)
[2021-03-22] MEDS: PANTOPRAZOLE 40 MG/10 ML VIAL IVP SCH (08:12)
--- NOTE | 2021-03-22 12:56 | P.PN ---
Subjective Ms. Matson is a 60-year-old female with a past medical history of CLL in remission on Venclexta transferred from [facility] for concerns of intra- abdominal abscess. Patient states for the past 1 week she has been having abdominal discomfort and for the past 3 to 4 days have been having fevers. She states that she has been taking Tylenol and Motrin without much improvement in her symptoms. Patient also states that she had an episode of nausea and vomiting prior to going to the hospital. At another facility patient had a CAT scan of the abdomen and pelvis showing acute diverticulitis with developing abscess,one [id number] mm and second fluid collection within the sigmoid wall-29mm. She was evaluated by the surgeon at the facility and they suggested that she may need IR guided drainage of the abscess, for which she is transferred for to [facility] at [place]. Patient received a dose of Zosyn and also be obtained blood cultures. Patient's reports from another facility reviewed. Patient's vitals at the time of admission to the ER temperature 99, heart rate 70, respiratory rate 20, blood pressure 141/81 saturating at 97% on room air. She had labs done showing white count of 4.3, hemoglobin 11.4, platelets 144. Sodium 137, potassium 4.3, chloride 106, bicarb 20, BUN 11, creatinine 0.56. Urine analysis is positive for large leukocyte esterase 27 RBCs 17 WBCs and trace blood with 4+ ketones. Coronavirus PCR negative. On 03/20/2021- patient is seen and examined at the bedside. Patient states her abdominal pain has improved. She denies having any nausea or vomiting currently. Patient denies having any fevers chills or rigors. Patient is tearful that she might have to undergo surgical exploration for drainage of the abscess as told by Dr. German earlier this afternoon. On reviewing the vitals patient spiked a fever of 100, tachycardic at 112, blood pressure 155/80, respiratory rate 18, saturating at 95% on room air. Her last from this morning showing white count of 4.3, hemoglobin 10.7, platelets 133. Sodium 134, potassium 4.1, chloride 106, bicarb 18, BUN 9, creatinine 0.54. Subjective: 03/21/2021 This is a pleasant 60 years old female who presents with signs symptoms of acute diverticulitis with abscess status post exploratory laparotomy with Shea procedure with part of colostomy on the left lower abdomen. 2 days' postop day #1 Patient remains in bed with control of minimal abdominal pain. Still nothing by mouth passing gas but no bowel movement Hemodynamically stable and labs reviewed She is currently on Zosyn She remains on normal saline at 100 mL per hour 03/22/2021 Patient looks in mild distress but she looks better overall, she is sitting in chair, she is tolerating a liquid diet with no nausea vomiting. That her abdominal pain is been controlled. She still has left lower abdomen colostomy back with some bloody discharge, or bowel movement yet. Vitals are stable, labs reviewed and they have unremarkable CBC and BMP. She remains on Zosyn and D5 half normal saline with potassium at 100 mL per hour Objective - Vital Signs Vital signs: Vital Signs Temp 99.4 F 03/22/21 12:26 Pulse 94 03/22/21 12:26 Resp 19 03/22/21 12:26 BP 126/76 03/22/21 12:26 Pulse Ox 91 L 03/22/21 12:26 Intake & Output 03/21/21 03/22/21 03/22/21 18:59 06:59 18:59 Intake Total 1520 Output Total 250 350 10 Balance -250 1170 -10 Intake: Intake, IV Titration 1400 Amount Dextrose 5%-0.45% NaCl 1, 1200 000 ml @ 100 mls/hr IV . Q10H [facility] Rx#:[id number] Piperacillin-Tazobactam 3 200 .375 gm In Sodium Chloride 0.9% 100 ml @ 25 mls/hr IVPB Q8H [facility] Rx#: [id number] Oral 120 Output: Drainage 10 Left Lateral Abdomen 10 Urine 250 350 Stool 0 Other: Voiding Method Indwelling Catheter Indwelling Catheter Indwelling Catheter - Exam GENERAL: The patient is alert and oriented x3, not in any acute distress. Well developed, well nourished. HEENT: Pupils are round and equally reacting to light. EOMI. No scleral icterus. No conjunctival pallor. Normocephalic, atraumatic. No pharyngeal erythema. No thyromegaly. CARDIOVASCULAR: S1 and S2 present. No murmurs, rubs, or gallops. PULMONARY: Chest is clear to auscultation, no wheezing or crackles. ABDOMEN: Soft, nontender, nondistended, normoactive bowel sounds. No palpable organomegaly. Left colostomy MUSCULOSKELETAL: No joint swelling or deformity. EXTREMITIES: No cyanosis, clubbing, or pedal edema. NEUROLOGICAL: Gross neurological examination did not reveal any focal deficits. SKIN: No rashes. no petechiae. - Labs CBC & Chem 7: 03/21/21 05:41 03/21/21 05:41 Assessment and Plan Assessment: Acute diverticulitis with abscess status post exploratory laparotomy with Shea procedure on 03/20 Sepsis secondary to above Thrombocytopenia History of CLL on Venetoclax History of anxiety History of MRSA Plan: This is a pleasant 60 years old female seen presents with acute diverticulitis and abscess status post exploratory laparotomy and Shea procedure Continue With pain management Continue with Zosyn and IV fluid Surgery team on the case Labs and medication were reviewed.. Continue same treatment. Continue with symptomatic treatment. Resume home medication. Monitor lytes and vitals. DVT and GI prophylaxis. Further recommendationsas per clinical course of the patient DVT prophylaxis: Subcutaneous heparin GI Prophylaxis: Ppi
--- NOTE | 2021-03-22 14:48 | P.PN ---
Subjective Progress Note Date: 03/22/21 Principal diagnosis: Diverticulitis with abscess The patient seen on rounds. She was up ambulating the garcia today. Pain is controlled. No nausea or vomiting. She is having quite a bit of belching. No output from the ostomy had. Objective - Vital Signs Vital signs: Vital Signs Temp 99.4 F 03/22/21 12:26 Pulse 94 03/22/21 12:26 Resp 19 03/22/21 12:26 BP 126/76 03/22/21 12:26 Pulse Ox 91 L 03/22/21 12:26 Intake & Output 03/21/21 03/22/21 03/22/21 18:59 06:59 18:59 Intake Total 1520 Output Total 250 350 410 Balance -250 1170 -410 Intake: Intake, IV Titration 1400 Amount Dextrose 5%-0.45% NaCl 1, 1200 000 ml @ 100 mls/hr IV . Q10H [facility] Rx#:[id number] Piperacillin-Tazobactam 3 200 .375 gm In Sodium Chloride 0.9% 100 ml @ 25 mls/hr IVPB Q8H [facility] Rx#: [id number] Oral 120 Output: Drainage 10 Left Lateral Abdomen 10 Urine 250 350 400 Stool 0 Other: Voiding Method Indwelling Catheter Indwelling Catheter Indwelling Catheter # Voids 1 - Constitutional General appearance: Present: cooperative, no acute distress - Respiratory Respiratory: bilateral: CTA, diminished (Mildly at the bases) - Gastrointestinal General gastrointestinal: Present: decreased bowel sounds, soft Localized gastrointestinal: surgical scar: diffuse (Incision was some serous drainage, no cellulitis. Ostomy is pink and viable. No output in the appliance) - Labs CBC & Chem 7: 03/21/21 05:41 03/21/21 05:41 Assessment and Plan (1) Diverticulitis of intestine with abscess Current Visit: Yes Status: Acute Code(s): K57.80 - DVTRCLI OF INTEST, PART UNSP, W PERF AND ABSCESS W/O BLEED SNOMED Code(s): 904888482 (2) CLL (chronic lymphocytic leukemia) Current Visit: Yes Status: Acute Code(s): C91.10 - CHRONIC LYMPHOCYTIC LEUK OF B-CELL TYPE NOT ACHIEVE REMIS SNOMED Code(s): 99595829 (3) Anxiety Current Visit: Yes Status: Acute Code(s): F41.9 - ANXIETY DISORDER, UNSPECIFIED SNOMED Code(s): 73615439 (4) Tobacco dependence Current Visit: Yes Status: Acute Code(s): F17.200 - NICOTINE DEPENDENCE, UNSPECIFIED, UNCOMPLICATED SNOMED Code(s): 70808707 Plan: Encourage ambulation and incentive spirometry. Continue IV antibiotics. Continue just small amounts of clear liquids until she has better bowel sounds and begins to have ostomy output. Progressing slowly.
[2021-03-22] MEDS: LACTATED RINGERS 1,000 ML IV SCH (18:11)
[2021-03-22] MEDS: ACYCLOVIR 200 MG CAP PO SCH (20:16)
[2021-03-22] MEDS: NON FORMULARY DRUG (Venetoclax [Venclexta] 100 MG Tablet) PO SCH (20:17)
[2021-03-23] MEDS: DEXTROSE 5%-0.45% NACL 1,000 ML IV SCH ×2 (01:26→09:46)
[2021-03-23] MEDS: HYDROcodone/APAP 5-325MG 1 EACH TAB PO PRN ×3 (02:00→22:08)
[2021-03-23] MEDS: PIPERACILLIN-TAZOBACTAM 3.375 GM in SODIUM CHLORIDE 0.9% 100 ML IVPB SCH ×3 (05:49→22:55)
--- NOTE | 2021-03-23 08:13 | P.PN ---
Subjective Progress Note Date: 03/23/21 Principal diagnosis: Diverticulitis with abscess The patient is seen on rounds. She's begun passing a lot of flatus per ostomy appliance. No nausea or vomiting. Tolerating small amounts of clear liquids. Getting up to the restroom on her own. Objective - Vital Signs Vital signs: Vital Signs Temp 98.2 F 03/23/21 05:00 Pulse 85 03/23/21 05:00 Resp 16 03/23/21 05:00 BP 112/73 03/23/21 05:00 Pulse Ox 99 03/23/21 05:00 Intake & Output 03/22/21 03/23/21 03/23/21 18:59 06:59 18:59 Intake Total 1400 Output Total 420 400 Balance 980 -400 Intake: Intake, IV Titration 1400 Amount Dextrose 5%-0.45% NaCl 1, 1200 000 ml @ 100 mls/hr IV . Q10H [facility] Rx#:[id number] Piperacillin-Tazobactam 3 200 .375 gm In Sodium Chloride 0.9% 100 ml @ 25 mls/hr IVPB Q8H [facility] Rx#: [id number] Output: Drainage 20 Left Lateral Abdomen 20 Urine 400 400 Other: Voiding Method Indwelling Catheter Toilet # Voids 2 2 - Constitutional General appearance: Present: cooperative - Gastrointestinal General gastrointestinal: Present: normal bowel sounds, soft (Softly distended) Localized gastrointestinal: surgical scar: diffuse (Ostomy is pink and viable, incision is without cellulitis) - Labs CBC & Chem 7: 03/21/21 05:41 03/21/21 05:41 Assessment and Plan (1) Diverticulitis of intestine with abscess Current Visit: Yes Status: Acute Code(s): K57.80 - DVTRCLI OF INTEST, PART UNSP, W PERF AND ABSCESS W/O BLEED SNOMED Code(s): 279407922 (2) CLL (chronic lymphocytic leukemia) Current Visit: Yes Status: Acute Code(s): C91.10 - CHRONIC LYMPHOCYTIC LEUK OF B-CELL TYPE NOT ACHIEVE REMIS SNOMED Code(s): 18866492 (3) Anxiety Current Visit: Yes Status: Acute Code(s): F41.9 - ANXIETY DISORDER, UNSPECIFIED SNOMED Code(s): 30347748 (4) Tobacco dependence Current Visit: Yes Status: Acute Code(s): F17.200 - NICOTINE DEPENDENCE, UNS PECIFIED, UNCOMPLICATED SNOMED Code(s): 20578219 Plan: The patient's diet will be increased. She'll receive ostomy education again today. Increase activity as tolerated. Decrease the maintenance IV. Progressing well
[2021-03-23] MEDS: PANTOPRAZOLE 40 MG/10 ML VIAL IVP SCH (09:45)
[2021-03-23] MEDS: HEPARIN SODIUM,PORCINE/PF 5,000 UNIT/0.5 ML SYRINGE SQ SCH ×2 (09:45→22:01)
--- NOTE | 2021-03-23 12:21 | P.PN ---
Subjective Ms. Matson is a 60-year-old female with a past medical history of CLL in remission on Venclexta transferred from [facility] for concerns of intra- abdominal abscess. Patient states for the past 1 week she has been having abdominal discomfort and for the past 3 to 4 days have been having fevers. She states that she has been taking Tylenol and Motrin without much improvement in her symptoms. Patient also states that she had an episode of nausea and vomiting prior to going to the hospital. At another facility patient had a CAT scan of the abdomen and pelvis showing acute diverticulitis with developing abscess,one [id number] mm and second fluid collection within the sigmoid wall-29mm. She was evaluated by the surgeon at the facility and they suggested that she may need IR guided drainage of the abscess, for which she is transferred for to [facility] [place]. Patient received a dose of Zosyn and also be obtained blood cultures. Patient's reports from another facility reviewed. Patient's vitals at the time of admission to the ER temperature 99, heart rate 70, respiratory rate 20, blood pressure 141/81 saturating at 97% on room air. She had labs done showing white count of 4.3, hemoglobin 11.4, platelets 144. Sodium 137, potassium 4.3, chloride 106, bicarb 20, BUN 11, creatinine 0.56. Urine analysis is positive for large leukocyte esterase 27 RBCs 17 WBCs and trace blood with 4+ ketones. Coronavirus PCR negative. On 03/20/2021- patient is seen and examined at the bedside. Patient states her abdominal pain has improved. She denies having any nausea or vomiting currently. Patient denies having any fevers chills or rigors. Patient is tearful that she might have to undergo surgical exploration for drainage of the abscess as told by Dr. German earlier this afternoon. On reviewing the vitals patient spiked a fever of 100, tachycardic at 112, blood pressure 155/80, respiratory rate 18, saturating at 95% on room air. Her last from this morning showing white count of 4.3, hemoglobin 10.7, platelets 133. Sodium 134, potassium 4.1, chloride 106, bicarb 18, BUN 9, creatinine 0.54. Subjective: 03/21/2021 This is a pleasant 60 years old female who presents with signs symptoms of acute diverticulitis with abscess status post exploratory laparotomy with Shea procedure with part of colostomy on the left lower abdomen. 2 days' postop day #1 Patient remains in bed with control of minimal abdominal pain. Still nothing by mouth passing gas but no bowel movement Hemodynamically stable and labs reviewed She is currently on Zosyn She remains on normal saline at 100 mL per hour 03/22/2021 Patient looks in mild distress but she looks better overall, she is sitting in chair, she is tolerating a liquid diet with no nausea vomiting. That her abdominal pain is been controlled. She still has left lower abdomen colostomy back with some bloody discharge, or bowel movement yet. Vitals are stable, labs reviewed and they have unremarkable CBC and BMP. She remains on Zosyn and D5 half normal saline with potassium at 100 mL per hour 03/23/2021 Patient reports improvement each day but she is tearful today because of her colostomy, she knows it is temporary. However she denies any suicidal thinking or ideation. Other than that she denies abdominal pain or vomiting. She is tolerating liquid diet which is advanced today to regular. Colostomy showing only gas with no bloody discharge and no bowel movement yet. Other than that she is hemodynamically stable. No labs which is ordered today. She remains on Zosyn and IV fluids Objective - Vital Signs Vital signs: Vital Signs Temp 97.9 F 03/23/21 12:18 Pulse 86 03/23/21 12:18 Resp 16 03/23/21 12:18 BP 120/76 03/23/21 12:18 Pulse Ox 95 03/23/21 12:18 Intake & Output 03/22/21 03/23/21 03/23/21 18:59 06:59 18:59 Intake Total 1400 Output Total 420 400 Balance 980 -400 Intake: Intake, IV Titration 1400 Amount Dextrose 5%-0.45% NaCl 1, 1200 000 ml @ 100 mls/hr IV . Q10H [facility] Rx#:[id number] Piperacillin-Tazobactam 3 200 .375 gm In Sodium Chloride 0.9% 100 ml @ 25 mls/hr IVPB Q8H [facility] Rx#: [id number] Output: Drainage 20 Left Lateral Abdomen 20 Urine 400 400 Other: Voiding Method Indwelling Catheter Toilet # Voids 2 2 - Exam GENERAL: The patient is alert and oriented x3, not in any acute distress. Well developed, well nourished. HEENT: Pupils are round and equally reacting to light. EOMI. No scleral icterus. No conjunctival pallor. Normocephalic, atraumatic. No pharyngeal erythema. No thyromegaly. CARDIOVASCULAR: S1 and S2 present. No murmurs, rubs, or gallops. PULMONARY: Chest is clear to auscultation, no wheezing or crackles. ABDOMEN: Soft, nontender, nondistended, normoactive bowel sounds. No palpable organomegaly. Left colostomy MUSCULOSKELETAL: No joint swelling or deformity. EXTREMITIES: No cyanosis, clubbing, or pedal edema. NEUROLOGICAL: Gross neurological examination did not reveal any focal deficits. SKIN: No rashes. no petechiae. - Labs CBC & Chem 7: 03/21/21 05:41 03/21/21 05:41 Assessment and Plan Assessment: Acute diverticulitis with abscess status post exploratory laparotomy with Shea procedure on 03/20 Sepsis secondary to above Thrombocytopenia History of CLL on Venetoclax History of anxiety History of MRSA Plan: This is a pleasant 60 years old female seen presents with acute diverticulitis and abscess status post exploratory laparotomy and Shea procedure Continue With pain management Continue with Zosyn and IV fluid Surgery team on the case Labs and medication were reviewed.. Continue same treatment. Continue with symptomatic treatment. Resume home medication. Monitor lytes and vitals. DVT and GI prophylaxis. Further recommendationsas per clinical course of the patient DVT prophylaxis: Subcutaneous heparin GI Prophylaxis: Ppi
[2021-03-23 12:36] LABS: Basophils % (A) 0 %; Eosinophils % (A) 1 %; HCT 32.8 % (34.0-46.0); HGB 10.5 gm/dL (11.4-16.0); Lymphocytes # (A) 0.4 k/uL (1.0-4.8); Lymphocytes % (A) 20 %; MCH 30.9 pg (25.0-35.0); MCHC 32.1 g/dL (31.0-37.0); MCV 96.4 fL (80.0-100.0); Mean Platelet Volume 7.7; Monocytes # (A) 0.1 k/uL (0-1.0); Monocytes % (A) 6 %; Neutrophils # (A) 1.4 k/uL (1.3-7.7); Neutrophils % (A) 71 %; Platelet Count 156 k/uL (150-450); RDW 12.9 % (11.5-15.5)
[2021-03-23 13:04] LABS: African American GFR (CKD) >90 (>60 ml/min/1.73 sqM); Anion Gap 5 mmol/L; Blood Urea Nitrogen 3 mg/dL (7-17); Calcium 8.5 mg/dL (8.4-10.2); Carbon Dioxide 26 mmol/L (22-30); Chloride 106 mmol/L (98-107); Glucose 133 mg/dL (74-99); Non-African American GFR(CKD) >90 (>60 ml/min/1.73 sqM); Potassium 3.6 mmol/L (3.5-5.1); Sodium 137 mmol/L (137-145)
[2021-03-23] MEDS: ACYCLOVIR 200 MG CAP PO SCH (22:01)
[2021-03-23] MEDS: NON FORMULARY DRUG (Venetoclax [Venclexta] 100 MG Tablet) PO SCH (22:01)
[2021-03-24] MEDS: DEXTROSE 5%-0.45% NACL 1,000 ML IV SCH (01:29)
[2021-03-24] MEDS: PIPERACILLIN-TAZOBACTAM 3.375 GM in SODIUM CHLORIDE 0.9% 100 ML IVPB SCH ×3 (05:44→22:06)
[2021-03-24] MEDS: HEPARIN SODIUM,PORCINE/PF 5,000 UNIT/0.5 ML SYRINGE SQ SCH ×2 (09:26→20:32)
[2021-03-24] MEDS: PANTOPRAZOLE 40 MG/10 ML VIAL IVP SCH (09:35)
--- NOTE | 2021-03-24 10:23 | P.PN ---
Subjective Progress Note Date: 03/24/21 Principal diagnosis: Diverticulitis with abscess The patient is seen on rounds. She was doing fairly well. This morning when she got up she got lightheaded and nauseated. She had a large amount of liquid stool out the colostomy. Still feels unsure about using the colostomy appliance Objective - Vital Signs Vital signs: Vital Signs Temp 98.4 F 03/24/21 08:17 Pulse 88 03/24/21 08:17 Resp 12 03/24/21 08:17 BP 142/80 03/24/21 08:17 Pulse Ox 96 03/24/21 04:40 Intake & Output 03/23/21 03/24/21 03/24/21 18:59 06:59 18:59 Intake Total 100 Output Total 100 400 Balance 0 -400 Intake: Intake, IV Titration 100 Amount Piperacillin-Tazobactam 3 100 .375 gm In Sodium Chloride 0.9% 100 ml @ 25 mls/hr IVPB Q8H [facility] Rx#: [id number] Output: Urine 400 Stool 100 Other: Voiding Method Toilet # Voids 2 - Constitutional General appearance: Present: cooperative - Gastrointestinal General gastrointestinal: Present: normal bowel sounds, soft Localized gastrointestinal: surgical scar: diffuse (Ostomy is pink and viable, incision is without cellulitis) - Labs CBC & Chem 7: 03/23/21 12:20 03/23/21 12:20 Labs: Abnormal Lab Results - Last 24 Hours (Table) 03/23/21 03/23/21 Range/Units 12:20 12:20 WBC 2.0 L (3.8-10.6) k/uL RBC 3.40 L (3.80-5.40) m/uL Hgb 10.5 L (11.4-16.0) gm/dL Hct 32.8 L (34.0-46.0) % Lymphocytes # 0.4 L (1.0-4.8) k/uL BUN 3 L (7-17) mg/dL Creatinine 0.43 L (0.52-1.04) mg/dL Glucose 133 H (74-99) mg/dL Assessment and Plan (1) Diverticulitis of intestine with abscess Current Visit: Yes Status: Acute Code(s): K57.80 - DVTRCLI OF INTEST, PART UNSP, W PERF AND ABSCESS W/O BLEED SNOMED Code(s): 475350629 (2) CLL (chronic lymphocytic leukemia) Current Visit: Yes Status: Acute Code(s): C91.10 - CHRONIC LYMPHOCYTIC LEUK OF B-CELL TYPE NOT ACHIEVE REMIS SNOMED Code(s): 88884517 (3) Anxiety Current Visit: Yes Status: Acute Code(s): F41.9 - ANXIETY DISORDER, UNSPECIFIED SNOMED Code(s): 59129459 (4) Tobacco dependence Current Visit: Yes Status: Acute Code(s): F17.200 - NICOTINE DEPENDENCE, UNSPECIFIED, UNCOMPLICATED SNOMED Code(s): 51461260 Plan: We'll monitor the patient today to make sure the nausea has resolved and she is comfortable with her ostomy. Likely discharge tomorrow. We discussed postoperative care.
[2021-03-24] MEDS: HYDROcodone/APAP 5-325MG 1 EACH TAB PO PRN ×2 (14:14→20:32)
--- NOTE | 2021-03-24 18:29 | P.PN ---
Subjective Progress Note Date: 03/24/21 Principal diagnosis: Acute diverticulitis with abscess status post exploratory laparotomy with Shea procedure on 03/20 Sepsis secondary to above Thrombocytopenia 60-year-old female with a past medical history of CLL in remission on Venclexta transferred from [facility] for concerns of intra-abdominal abscess. Patient states for the past 1 week she has been having abdominal discomfort and for the past 3 to 4 days have been having fevers. She states that she has been taking Tylenol and Motrin without much improvement in her symptoms. Patient also states that she had an episode of nausea and vomiting prior to going to the hospital. At another facility patient had a CAT scan of the abdomen and pelvis showing acute diverticulitis with developing abscess,one [id number] mm and second fluid collection within the sigmoid wall-29mm. She was evaluated by the surgeon at the facility and they suggested that she may need IR guided drainage of the abscess, for which she is transferred for to [facility] [place]. Patient received a dose of Zosyn and also be obtained blood cultures. Patient's reports from another facility reviewed. Patient's vitals at the time of admission to the ER temperature 99, heart rate 70, respiratory rate 20, blood pressure 141/81 saturating at 97% on room air. She had labs done showing white count of 4.3, hemoglobin 11.4, platelets 144. Sodium 137, potassium 4.3, chloride 106, bicarb 20, BUN 11, creatinine 0.56. Urine analysis is positive for large leukocyte esterase 27 RBCs 17 WBCs and trace blood with 4+ ketones. Coronavirus PCR negative. On 03/20/2021- patient is seen and examined at the bedside. Patient states her abdominal pain has improved. She denies having any nausea or vomiting cur rently. Patient denies having any fevers chills or rigors. Patient is tearful that she might have to undergo surgical exploration for drainage of the abscess as told by Dr. German earlier this afternoon. On reviewing the vitals patient spiked a fever of 100, tachycardic at 112, blood pressure 155/80, respiratory rate 18, saturating at 95% on room air. Her last from this morning showing white count of 4.3, hemoglobin 10.7, platelets 133. Sodium 134, potassium 4.1, chloride 106, bicarb 18, BUN 9, creatinine 0.54. Objective - Vital Signs Vital signs: Vital Signs Temp 98.6 F 03/24/21 11:20 Pulse 95 03/24/21 11:20 Resp 12 03/24/21 11:20 BP 142/80 03/24/21 11:20 Pulse Ox 88 L 03/24/21 11:20 Intake & Output 03/23/21 03/24/21 03/24/21 18:59 06:59 18:59 Intake Total 100 Output Total 100 400 200 Balance 0 -400 -200 Intake: Intake, IV Titration 100 Amount Piperacillin-Tazobactam 3 100 .375 gm In Sodium Chloride 0.9% 100 ml @ 25 mls/hr IVPB Q8H [facility] Rx#: [id number] Output: Urine 400 Stool 100 200 Other: Voiding Method Toilet # Voids 2 # Bowel Movements 1 - Exam GENERAL: The patient is alert and oriented x3, not in any acute distress. Well developed, well nourished. HEENT: Pupils are round and equally reacting to light. EOMI. No scleral icterus. No conjunctival pallor. Normocephalic, atraumatic. No pharyngeal erythema. No thyromegaly. CARDIOVASCULAR: S1 and S2 present. No murmurs, rubs, or gallops. PULMONARY: Chest is clear to auscultation, no wheezing or crackles. ABDOMEN: Soft, nontender, nondistended, normoactive bowel sounds. No palpable organomegaly. Left colostomy MUSCULOSKELETAL: No joint swelling or deformity. EXTREMITIES: No cyanosis, clubbing, or pedal edema. NEUROLOGICAL: Gross neurological examination did not reveal any focal deficits. SKIN: No rashes. no petechiae. - Labs CBC & Chem 7: 03/23/21 12:20 03/23/21 12:20 Labs: Abnormal Lab Results - Last 24 Hours (Table) 03/23/21 03/23/21 Range/Units 12:20 12:20 WBC 2.0 L (3.8-10.6) k/uL RBC 3.40 L (3.80-5.40) m/uL Hgb 10.5 L (11.4-16.0) gm/dL Hct 32.8 L (34.0-46.0) % Lymphocytes # 0.4 L (1.0-4.8) k/uL BUN 3 L (7-17) mg/dL Creatinine 0.43 L (0.52-1.04) mg/dL Glucose 133 H (74-99) mg/dL Assessment and Plan Assessment: Acute diverticulitis with abscess status post exploratory laparotomy with Shea procedure on 03/20 Sepsis secondary to above Thrombocytopenia History of CLL on Venetoclax History of anxiety History of MRSA Plan: This is a pleasant 60 years old female seen presents with acute diverticulitis and abscess status post exploratory laparotomy and Shea procedure Continue With pain management Continue with Zosyn and IV fluid Surgery team on the case Labs and medication were reviewed.. Continue same treatment. Continue with symptomatic treatment. Resume home medication. Monitor lytes and vitals. DVT and GI prophylaxis. Further recommendationsas per clinical course of the patient DVT prophylaxis: Subcutaneous heparin
[2021-03-24] MEDS: NON FORMULARY DRUG (Venetoclax [Venclexta] 100 MG Tablet) PO SCH (20:32)
[2021-03-24] MEDS: ACYCLOVIR 200 MG CAP PO SCH (20:32)
[2021-03-25] MEDS: PIPERACILLIN-TAZOBACTAM 3.375 GM in SODIUM CHLORIDE 0.9% 100 ML IVPB SCH (05:35)
[2021-03-25 06:00] VITALS: RESP 20
[2021-03-25] MEDS: HEPARIN SODIUM,PORCINE/PF 5,000 UNIT/0.5 ML SYRINGE SQ SCH (08:35)
[2021-03-25] MEDS: PANTOPRAZOLE 40 MG/10 ML VIAL IVP SCH (08:36)
[2021-03-25] MEDS: HYDROcodone/APAP 5-325MG 1 EACH TAB PO PRN (08:41)
[2021-03-25 11:39] VITALS: BP 125/77; PULSE 86; TEMP 98.4
== END 2021-03-25 15:36 | disposition home health service (06) | DRG 853 ==
LOC: EC 14:14 → 6PED 16:16 → 5NMEDONC 03-20 18:51
PROVIDERS: ADMIT Internal Medicine; ATTEND Internal Medicine
PROC: 0DBN0ZZ Excision of Sigmoid Colon, Open Approach (ICD-10-PCS; principal; 2021-03-20 09:15)
PROC: 0D1N0Z4 Bypass Sigmoid Colon to Cutaneous, Open Approach (ICD-10-PCS; principal; 2021-03-20 09:15)
DX: A41.9 Sepsis, unspecified organism (principal); K65.1 Peritoneal abscess; K57.20 Diverticulitis of large intestine with perforation and abscess without bleeding; C91.11 Chronic lymphocytic leukemia of B-cell type in remission; D69.6 Thrombocytopenia, unspecified; Z20.822 Contact with and (suspected) exposure to COVID-19; F41.9 Anxiety disorder, unspecified; G47.00 Insomnia, unspecified; F17.200 Nicotine dependence, unspecified, uncomplicated; Z71.6 Tobacco abuse counseling; Z79.899 Other long term (current) drug therapy; Z86.14 Personal history of Methicillin resistant Staphylococcus aureus infection; Z90.49 Acquired absence of other specified parts of digestive tract; Z87.39 Personal history of other diseases of the musculoskeletal system and connective tissue; Z98.890 Other specified postprocedural states; Z88.1 Allergy status to other antibiotic agents; Z88.0 Allergy status to penicillin; Z88.8 Allergy status to other drugs, medicaments and biological substances
CPT/HCPCS: 36415; 80048; 80053; 81001; 82150; 83690; 85025; 85610; 85730; 86850; 86900; 86901; 87086; 87635; 88307; 96365; 96367; 96375; 99284